=== PATIENT | female | born 1955 | race Caucasian/White ===

== ENCOUNTER 2020-09-04 11:00 | Observation (INO) ==
[2020-09-04] MEDS ORDERED: Ipratropium/Albuterol Neb 3 ML IH ONE ×2 (11:08→12:58)
[2020-09-04] MEDS ORDERED: Dexamethasone 4 MG/ML VIAL IVP ONE (11:08)
[2020-09-04 11:43] LABS: Basophils # 0.1 K/mcL (0.0-0.2); Basophils % 0.6 %; Eosinophils % 11.9 %; Hematocrit 40.1 % (35.3-44.9); Hemoglobin 12.7 g/dL (11.5-15.4); Immature Granulocytes % 0.2 % (0-4); Lymphocytes # 1.6 K/mcL (0.6-4.6); Lymphocytes % 18.3 %; Mean Corpuscular HGB Conc 31.7 g/dL (31.6-35.5); Mean Corpuscular Hemoglobin 28.5 pg (28.0-33.3); Mean Corpuscular Volume 89.9 fL (83.0-100.0); Mean Platelet Volume 10.5 fL (9.4-12.4); Monocytes # 0.4 K/mcL (0.0-1.3); Monocytes % 4.7 %; Neutrophils # 5.6 K/mcL (1.6-8.9); Platelet Count 326 K/mcL (140-400); Red Blood Count 4.46 M/mcL (3.82-4.97); Red Cell Distribution Width 13.8 % (11.5-14.5); Segmented Neutrophils % 64.3 %; White Blood Count 8.8 K/mcL (4.3-11.1)
[2020-09-04 12:16] LABS: BUN/Creatinine Ratio 11 (6-26); Blood Urea Nitrogen 11 mg/dL (8-23); Calcium 9.2 mg/dL (8.6-10.3); Carbon Dioxide 22 mEq/L (23-29); Chloride 104 mEq/L (98-107); Glucose 127 mg/dL (70-105); Osmolality,Calculated 289 (280-300); Potassium 3.6 mEq/L (3.5-5.1); Sodium 139 mEq/L (136-145); Troponin I < 0.03 ng/mL (< 0.04); eGFR For African Americans > 60 (> 60); eGFR For Non-African Americans 57 (> 60)
[2020-09-04 12:37] LABS: Adenovirus Not Detected (Not Detect); Bordetella Pertussis Not Detected (Not Detect); Chlamydophila pneumoniae Not Detected (Not Detect); Coronavirus 229E Not Detected (Not Detect); Coronavirus HKU1 Not Detected (Not Detect); Coronavirus NL63 Not Detected (Not Detect); Coronavirus OC43 Not Detected (Not Detect); Human Metapneumovirus Not Detected (Not Detect); Human Rhinovirus/Enterovirus Not Detected (Not Detect); Influenza A Subtype 2009 H1 Not Detected (Not Detect); Influenza B Not Detected (Not Detect); Mycoplasma pneumoniae Not Detected (Not Detect); Parainfluenza Virus 1 Not Detected (Not Detect); Parainfluenza Virus 2 Not Detected (Not Detect); Parainfluenza Virus 3 Not Detected (Not Detect); Parainfluenza Virus 4 Not Detected (Not Detect); Respiratory Syncytial Virus Not Detected (Not Detect); SARS-CoV-2 Not Detected (Not Detect)
[2020-09-04] MEDS ORDERED: Isovue-370 500 ML BOTTLE IVP ONE (13:31)
[2020-09-04] MEDS ORDERED: *HR* Enoxaparin 120 MG/0.8 ML SYRINGE SQ STA (14:40)
[2020-09-04] MEDS ORDERED: Naloxone 0.4 MG/ML INJ IVP PRN (15:20)
[2020-09-04] MEDS ORDERED: Ondansetron 4 MG/2 ML VIAL IVP PRN (15:20)
[2020-09-04] MEDS: Bumetanide 1 MG TABLET PO SCH (17:29)
[2020-09-04] MEDS: Ranolazine 500 MG TAB.ER.12H PO SCH (20:59)
[2020-09-04] MEDS: Ipratropium/Albuterol Neb 3 ML IH SCH (21:26)
[2020-09-05] MEDS: Ipratropium/Albuterol Neb 3 ML IH SCH ×2 (03:20→10:30)
[2020-09-05 04:48] LABS: INR 1.2; Prothrombin Time 13.4 Seconds (9.4-12.1)
[2020-09-05] MEDS ORDERED: *HR* Rivaroxaban 15 MG TABLET PO SCH (06:00)
[2020-09-05 07:43] VITALS: BP 125/68
[2020-09-05] MEDS ORDERED: Multivit/Ca/Min/Fe/FA 1 TAB TABLET PO SCH (09:00)
[2020-09-05] MEDS ORDERED: Aspirin 81 MG TAB.CHEW PO SCH (09:00)
[2020-09-05] MEDS: Bumetanide 1 MG TABLET PO SCH (09:27)
[2020-09-05] MEDS: Ranolazine 500 MG TAB.ER.12H PO SCH (09:27)
== END 2020-09-05 12:21 | disposition home or self-care (01) ==
LOC: EMEROOARM 11:00 → 3ANU 11:00 → SUATTDRO 15:12 → 3ANU 16:14
PROVIDERS: ADMIT Internal Medicine; ATTEND Family Medicine